=== PATIENT | female | born 1975 | race Hispanic/Latino ===

== ENCOUNTER 2021-08-10 07:51 | Inpatient (IN) | payer BC ==
[2021-08-07 09:29] LABS: BASOPHILS % (AUTO) 0.4 % (0.0-5.0); EOSINOPHILS % (AUTO) 1.7 % (0.0-8.0); HEMATOCRIT 42.8 % (36-48); MEAN CORPUSCULAR HEMOGLOBIN 30.3 pg (27.0-33.0); MEAN CORPUSCULAR HGB CONC 32.5 g/dL (32.0-36.0); MEAN CORPUSCULAR VOLUME 93.2 fL (79-99); MONOCYTES % (AUTO) 8.1 % (3.0-13.0); NEUTROPHILS % (AUTO) 66.9 % (40.0-77.0); PLATELET COUNT (AUTO) 293 K/uL (130-400); RED BLOOD CELL COUNT(AUTO) 4.59 MIL/uL (4.00-5.50); RED CELL DISTRIBUTION WIDTH 13.2 % (11.0-15.5); WHITE BLOOD COUNT (AUTO) 10.8 K/uL (4.8-10.8)
[2021-08-07 10:36] VITALS: BP 156/74
[~2021-08-10] VITALS: Ht 162.6 cm; Wt 91.5 kg
[2021-08-10] VITALS (22 sets, daily range): BP systolic 103–145; BP diastolic 63–87
[2021-08-10] MEDS ORDERED: CEFAZOLIN SODIUM 1 GM VIAL ONE (08:22)
[2021-08-10] MEDS ORDERED: LACTATED RINGERS 1000ML 1,000 ML IV ONE (08:22)
[2021-08-10] MEDS: CALDOLOR 800MG+NS 250ML 250 ML IV SCH ×3 (08:58→21:28)
[2021-08-10] MEDS ORDERED: CEFAZOLIN SODIUM 2 GM VIAL IV SCH (09:00)
[2021-08-10] MEDS ORDERED: DEXAMETHASONE SOD PHOSPHATE 10MG/ML 1ML VIAL ONE (09:15)
[2021-08-10] MEDS ORDERED: MIDAZOLAM HCL 1 MG/ML 2ML VIAL ONE (09:16)
[2021-08-10] MEDS ORDERED: SUCCINYLCHOLINE CHLORIDE 20 MG/ML 10 ML VIAL ONE (09:16)
[2021-08-10] MEDS ORDERED: PROPOFOL 10 MG/ML 20ML VIAL IV ONE (09:16)
[2021-08-10] MEDS ORDERED: NEOSTIGMINE 5MG/5ML SYR IV ONE (09:16)
[2021-08-10] MEDS ORDERED: LIDOCAINE PF 100MG/5ML (2%) SYRINGE 5ML ONE ×2 (09:16→09:17)
[2021-08-10] MEDS ORDERED: GLYCOPYRROLATE 1 MG/5 ML SYRINGE ONE (09:16)
[2021-08-10] MEDS ORDERED: ONDANSETRON 4MG INJ ONE (09:16)
[2021-08-10] MEDS ORDERED: ROCURONIUM 10MG/1ML SYR 10 MG/ML ML ONE (09:17)
[2021-08-10] MEDS ORDERED: FENTANYL CITRATE PF 50 MCG/1 ML 2ML VIAL ONE (09:17)
[2021-08-10] MEDS ORDERED: MORPHINE PF 100MG/10ML AMP IV ONE (09:19)
[2021-08-10] MEDS ORDERED: MEPERIDINE-PF 25 MG/ML SYG ONE ×2 (11:43→12:09)
[2021-08-10] MEDS ORDERED: PROMETHAZINE HCL 25 MG/ML 1ML AMPULE IM PRN ×2 (12:00)
[2021-08-10] MEDS ORDERED: BISACODYL 10 MG SUPP.RECT RC PRN (12:00)
[2021-08-10] MEDS ORDERED: MEPERIDINE-PF 75 MG/ML SYG IM PRN (12:00)
[2021-08-10] MEDS ORDERED: DOCUSATE SODIUM 100 MG CAP PO PRN (12:00)
[2021-08-10] MEDS ORDERED: SIMETHICONE 80 MG TAB.CHEW PO PRN (12:00)
[2021-08-10] MEDS ORDERED: ACETAMINOPHEN WITH CODEINE 1 TAB TAB PO PRN ×2 (12:00)
[2021-08-10] MEDS: DEXTROSE 5 %-0.45 % NACL 1,000 ML IV PRN ×2 (13:34→21:33)
[2021-08-10] MEDS: ONDANSETRON 4MG INJ IVP PRN (15:45)
[2021-08-11 03:32] VITALS: BP 112/63
[2021-08-11] MEDS: CALDOLOR 800MG+NS 250ML 250 ML IV SCH (04:02)
[2021-08-11] MEDS: DEXTROSE 5 %-0.45 % NACL 1,000 ML IV PRN (06:58)
[2021-08-11 07:29] VITALS: BP 121/66
[2021-08-11] MEDS: ONDANSETRON 4MG INJ IVP PRN (07:52)
[2021-08-11 11:25] VITALS: BP 102/59
[2021-08-11] MEDS ORDERED: IBUPROFEN 800 MG TAB PO SCH (12:00)
== END 2021-08-11 15:15 | disposition home or self-care (01) | DRG 743 ==
LOC: DAH 07:51 → DAHIP 07:52 → DAH 07:52 → WSH 12:55
PROVIDERS: ADMIT Obstetrics & Gynecology; ATTEND Obstetrics & Gynecology
PROC: 0UB70ZZ Excision of Bilateral Fallopian Tubes, Open Approach (ICD-10-PCS; 2021-08-10)
PROC: 0U5 Female Reproductive System, Destruction (ICD-10-PCS; 2021-08-10)
PROC: 0UT90ZZ Resection of Uterus, Open Approach (ICD-10-PCS; principal; 2021-08-10 09:31)
DX: N92.1 Excessive and frequent menstruation with irregular cycle (principal); N94.6 Dysmenorrhea, unspecified; N80.1 Endometriosis of ovary
CPT/HCPCS: 36415; 84703; 85025; 86850; 86900; 86901; 87635; C9803; G0378; J0330; J0690; J1100; J1741; J2001; J2175; J2250; J2274; J2405; J2704; J2710; J3010; J3490; J7120

== ENCOUNTER 2021-11-27 21:24 | Emergency (ER) | payer BC ==
[~2021-11-27] VITALS: Ht 165.1 cm; Wt 89.8 kg
[2021-11-27 21:52] VITALS: BP 132/71
[2021-11-27] MEDS ORDERED: DOCU-116 PO (21:58)
[2021-11-27] MEDS ORDERED: WITC1MED20 TP (21:58)
[2021-11-27] MEDS ORDERED: HYDR30CR79 RC (21:58)
== END 2021-11-27 22:04 | disposition home or self-care (01) ==
LOC: EDH 21:24
DX: K64.4 Residual hemorrhoidal skin tags (principal); Z87.19 Personal history of other diseases of the digestive system
CPT/HCPCS: 99282